=== PATIENT | female | born 1980 | race Caucasian/White ===

== ENCOUNTER 2019-11-09 21:26 | Emergency (ER) | payer MEDICAID ==
[~2019-11-09] VITALS: Ht 170.2 cm; Wt 104.5 kg
[2019-11-09 21:34] VITALS: Ht 170.2 cm; Wt 104.5 kg
[2019-11-09] MEDS ORDERED: LASIX40 MG PO (21:35)
[2019-11-09] MEDS ORDERED: BACLOFEN10 MG PO (21:36)
[2019-11-09] MEDS ORDERED: K-DUR20 MEQ PO (21:36)
[2019-11-09 22:17] LABS: BASOPHILS 0.3 % (0-2); EOSINOPHILS 2.7 % (0-7); HEMATOCRIT 33.4 % (36.0-48.0); IMMATURE GRANULOCYTES 0.8 % (0-5); LYMPHOCYTES 14.5 % (15-50); MCH 29.2 pg (26.0-34.0); MCHC 32.9 g/dL (31.0-37.0); MCV 88.6 fL (80.0-100.0); MEAN PLATELET VOLUME 9.6 fL (7.4-10.4); MONOCYTES 9.8 % (2-11); NEUTROPHILS 71.9 % (40-80); PLATELET COUNT 271 10x3/uL (130-400); RBC 3.77 10x6/uL (4.00-5.40); RDW 13.9 % (11.5-14.5); WBC 10.6 10x3/uL (4.8-10.8)
[2019-11-09 22:40] LABS: ALBUMIN 3.3 g/dL (3.4-5.0); ALKALINE PHOSPHATASE 69 U/L (30-120); ALT (SGPT) 17 U/L (10-68); AMYLASE - SERUM 26 U/L (25-115); BILIRUBIN - TOTAL 0.17 mg/dL (0.2-1.3); CALC OSMOLALITY 280 mosm/kg (275-300); CALCIUM 8.7 mg/dL (8.5-10.1); CARBON DIOXIDE 24.5 mmol/L (21.0-32.0); CHLORIDE - SERUM 105 mmol/L (98-107); CREATININE - SERUM 0.9 mg/dL (0.6-1.3); GLUCOSE 128 mg/dL (74-106); LIPASE 93 U/L (73-393); POTASSIUM - SERUM 3.4 mmol/L (3.5-5.1); PROTEIN - SERUM 6.1 g/dL (6.4-8.2); SODIUM 139 mmol/L (136-145); TROPONIN-I < 0.017 ng/mL (0.000-0.060); UREA NITROGEN 15 mg/dL (7-18); eGFR NON AFRICAN AMERICAN 74 mL/min (90-120)
[2019-11-09 22:43] LABS: BILIRUBIN NEGATIVE (NEGATIVE); GLUCOSE NEGATIVE (NEGATIVE); HCG URINE NEGATIVE (NEGATIVE); KETONE NEGATIVE (NEGATIVE); NITRITE NEGATIVE (NEGATIVE); UROBILINOGEN NORMAL (NORMAL)
[2019-11-09 22:45] LABS: BACTERIA MODERATE /hpf (NEGATIVE); RED CELLS - URINE 0-5 /hpf (0-5); WHITE CELLS - URINE >50 /hpf (NEGATIVE)
[2019-11-09] MEDS ORDERED: KEFLEX500 MG PO (22:57)
[2019-11-09] MEDS ORDERED: MACROBID100 MG PO (22:57)
[2019-11-10] MEDS ORDERED: DIFLUCAN150 MG PO (00:06)
[2019-11-10] MEDS ORDERED: ULTRAM50 MG PO (00:11)
[2019-11-10 02:22] VITALS: BP 120/74
== END 2019-11-10 02:27 | disposition home or self-care (01) ==
LOC: D.ER 21:26
PROVIDERS: Family Medicine
DX: R10.30 Lower abdominal pain, unspecified (principal); N39.0 Urinary tract infection, site not specified; R19.7 Diarrhea, unspecified; M54.9 Dorsalgia, unspecified

== ENCOUNTER 2019-11-12 21:23 | Emergency (ER) | payer MEDICARE, MEDICAID ==
[~2019-11-12] VITALS: Ht 170.2 cm; Wt 104.5 kg
[~2019-11-12 21:23] MED LIST: BACLOFEN10 MG PO; DIFLUCAN150 MG PO; K-DUR20 MEQ PO; KEFLEX500 MG PO; LASIX40 MG PO; MACROBID100 MG PO; ULTRAM50 MG PO
[2019-11-12 21:28] VITALS: Ht 170.2 cm; Wt 104.5 kg
[2019-11-12 22:20] LABS: BASOPHILS 0.4 % (0-2); EOSINOPHILS 4.4 % (0-7); HEMATOCRIT 44.9 % (36.0-48.0); HEMOGLOBIN 14.1 g/dL (12-16); IMMATURE GRANULOCYTES 1.8 % (0-5); LYMPHOCYTES 19.6 % (15-50); MCH 28.7 pg (26.0-34.0); MCHC 31.4 g/dL (31.0-37.0); MCV 91.4 fL (80.0-100.0); MEAN PLATELET VOLUME 10.6 fL (7.4-10.4); MONOCYTES 5.9 % (2-11); NEUTROPHILS 67.9 % (40-80); PLATELET COUNT 220 10x3/uL (130-400); RBC 4.91 10x6/uL (4.00-5.40); RDW 13.6 % (11.5-14.5)
[2019-11-12 22:23] LABS: BILIRUBIN NEGATIVE (NEGATIVE); GLUCOSE NEGATIVE (NEGATIVE); KETONE NEGATIVE (NEGATIVE); NITRITE NEGATIVE (NEGATIVE); UROBILINOGEN NORMAL (NORMAL)
[2019-11-12 22:31] LABS: BACTERIA FEW /hpf (NEGATIVE); RED CELLS - URINE NONE SEEN /hpf (0-5); WHITE CELLS - URINE 0-5 /hpf (NEGATIVE)
[2019-11-12 22:59] LABS: CALC OSMOLALITY 281 mosm/kg (275-300); CALCIUM 8.6 mg/dL (8.5-10.1); CARBON DIOXIDE 25.4 mmol/L (21.0-32.0); CHLORIDE - SERUM 108 mmol/L (98-107); CREATININE - SERUM 0.8 mg/dL (0.6-1.3); GLUCOSE 107 mg/dL (74-106); POTASSIUM - SERUM 3.9 mmol/L (3.5-5.1); SODIUM 142 mmol/L (136-145); UREA NITROGEN 10 mg/dL (7-18); eGFR NON AFRICAN AMERICAN 85 mL/min (90-120)
[2019-11-12] MEDS ORDERED: DOXYCYCLINE HY100 M2 PO (23:04)
[2019-11-12] MEDS ORDERED: HYDROCODON-ACE1 EAC2 PO (23:04)
[2019-11-12] MEDS ORDERED: FLAGYL500 MG PO (23:04)
[2019-11-12 23:05] LABS: ALBUMIN 3.1 g/dL (3.4-5.0); ALKALINE PHOSPHATASE 70 U/L (30-120); ALT (SGPT) 28 U/L (10-68); BILIRUBIN - TOTAL 0.17 mg/dL (0.2-1.3); PROTEIN - SERUM 6.2 g/dL (6.4-8.2)
[2019-11-12 23:17] LABS: HCG SERUM NEGATIVE (NEGATIVE)
[2019-11-12 23:29] VITALS: BP 122/89
== END 2019-11-12 23:29 | disposition home or self-care (01) ==
LOC: D.ER 21:23
PROVIDERS: Emergency Medicine
DX: N73.9 Female pelvic inflammatory disease, unspecified (principal); R10.32 Left lower quadrant pain

== ENCOUNTER 2019-11-28 13:48 | Emergency (ER) | payer MEDICARE, MEDICAID ==
[~2019-11-28] VITALS: Ht 170.2 cm; Wt 104.5 kg
[~2019-11-28 13:48] MED LIST changes: +DOXYCYCLINE HY100 M2 PO; +FLAGYL500 MG PO; +HYDROCODON-ACE1 EAC2 PO
[2019-11-28 13:52] VITALS: Ht 170.2 cm; Wt 104.5 kg
[2019-11-28 15:27] VITALS: BP 159/90
== END 2019-11-28 15:28 | disposition home or self-care (01) ==
LOC: D.ER 13:48
DX: A54.9 Gonococcal infection, unspecified (principal)

== ENCOUNTER 2020-01-05 14:30 | Emergency (ER) | payer MEDICARE, MEDICAID ==
[~2020-01-05] VITALS: Ht 170.2 cm; Wt 105.0 kg
[2020-01-05 14:33] VITALS: Ht 170.2 cm; Wt 105.0 kg
[2020-01-05 15:02] LABS: BASOPHILS 0.5 % (0-2); EOSINOPHILS 2.3 % (0-7); HEMATOCRIT 43.2 % (36.0-48.0); IMMATURE GRANULOCYTES 0.7 % (0-5); LYMPHOCYTES 24.8 % (15-50); MCH 28.7 pg (26.0-34.0); MCHC 32.4 g/dL (31.0-37.0); MCV 88.5 fL (80.0-100.0); MEAN PLATELET VOLUME 10.7 fL (7.4-10.4); MONOCYTES 6.1 % (2-11); NEUTROPHILS 65.6 % (40-80); RBC 4.88 10x6/uL (4.00-5.40); RDW 14.7 % (11.5-14.5); WBC 5.6 10x3/uL (4.8-10.8)
[2020-01-05 15:17] LABS: HCG URINE NEGATIVE (NEGATIVE)
[2020-01-05 15:34] LABS: CALC OSMOLALITY 279 mosm/kg (275-300); CALCIUM 9.4 mg/dL (8.5-10.1); CARBON DIOXIDE 24.5 mmol/L (21.0-32.0); CHLORIDE - SERUM 107 mmol/L (98-107); GLUCOSE 86 mg/dL (74-106); POTASSIUM - SERUM 4.2 mmol/L (3.5-5.1); SODIUM 140 mmol/L (136-145); UREA NITROGEN 17 mg/dL (7-18); eGFR NON AFRICAN AMERICAN 65 mL/min (90-120)
[2020-01-05 15:35] LABS: PLATELET COUNT 115 10x3/uL (130-400)
[2020-01-05 15:42] LABS: ALBUMIN 3.9 g/dL (3.4-5.0); ALKALINE PHOSPHATASE 75 U/L (30-120); ALT (SGPT) 28 U/L (10-68); AMYLASE - SERUM 56 U/L (25-115); BILIRUBIN - TOTAL 0.13 mg/dL (0.2-1.3); LIPASE 184 U/L (73-393); PROTEIN - SERUM 7.4 g/dL (6.4-8.2); TROPONIN-I < 0.017 ng/mL (0.000-0.060)
[2020-01-05 16:27] LABS: BILIRUBIN NEGATIVE (NEGATIVE); KETONE NEGATIVE (NEGATIVE); NITRITE NEGATIVE (NEGATIVE); UROBILINOGEN NORMAL mg/dL (< 2)
[2020-01-05 16:28] LABS: BACTERIA FEW HPF (NONE SEEN); EPITHELIAL CELLS 0-5 /hpf (0-5)
[2020-01-05] MEDS ORDERED: VOLTAREN75 MG PO (19:12)
[2020-01-05] MEDS ORDERED: FLAGYL500 MG PO (19:12)
[2020-01-05] MEDS ORDERED: ZOFRAN ODT4 MG/UDTAB PO (19:12)
[2020-01-05] MEDS ORDERED: DOXYCYCLINE HY100 M2 PO (19:12)
[2020-01-05 19:30] VITALS: BP 124/76
== END 2020-01-05 19:30 | disposition home or self-care (01) ==
LOC: D.ER 14:30
PROVIDERS: Family Medicine
DX: R10.32 Left lower quadrant pain (principal); N73.9 Female pelvic inflammatory disease, unspecified; Z20.2 Contact with and (suspected) exposure to infections with a predominantly sexual mode of transmission; D69.6 Thrombocytopenia, unspecified; N39.0 Urinary tract infection, site not specified; N89.8 Other specified noninflammatory disorders of vagina; R30.0 Dysuria; R19.7 Diarrhea, unspecified

== ENCOUNTER 2020-09-03 12:07 | Emergency (ER) | payer MEDICARE, MEDICAID ==
[~2020-09-03] VITALS: Ht 170.2 cm; Wt 96.4 kg
[~2020-09-03 12:07] MED LIST changes: +VOLTAREN75 MG PO; +ZOFRAN ODT4 MG/UDTAB PO
[2020-09-03 12:10] VITALS: BP 144/96; Ht 170.2 cm; Wt 96.4 kg
[2020-09-03] MEDS ORDERED: AUGMENTIN 875-11 TAB PO (13:55)
[2020-09-03] MEDS ORDERED: TORADOL10 MG PO (13:55)
== END 2020-09-03 14:30 | disposition home or self-care (01) ==
LOC: D.ER 12:07
DX: T22.211A Burn of second degree of right forearm, initial encounter (principal); H66.91 Otitis media, unspecified, right ear; X19.XXXA Contact with other heat and hot substances, initial encounter; Y93.9 Activity, unspecified; Y92.9 Unspecified place or not applicable

== ENCOUNTER 2020-09-19 20:40 | Emergency (ER) | payer MEDICARE, MEDICAID ==
[~2020-09-19] VITALS: Ht 170.2 cm; Wt 97.7 kg
[~2020-09-19 20:40] MED LIST changes: +AUGMENTIN 875-11 TAB PO; +TORADOL10 MG PO
[2020-09-19 20:49] VITALS: BP 142/86; Ht 170.2 cm; Wt 97.7 kg
== END 2020-09-19 23:25 | disposition other institution (70) ==
LOC: D.ER 20:40
DX: S05.32XA Ocular laceration without prolapse or loss of intraocular tissue, left eye, initial encounter (principal); W22.8XXA Striking against or struck by other objects, initial encounter; Y93.9 Activity, unspecified; Y92.9 Unspecified place or not applicable

== ENCOUNTER 2020-09-28 04:32 | Emergency (ER) | payer MEDICARE, MEDICAID ==
[~2020-09-28] VITALS: Ht 170.2 cm; Wt 90.9 kg
[2020-09-28 04:34] VITALS: Ht 170.2 cm; Wt 90.9 kg
[2020-09-28] MEDS ORDERED: OPTIVE SENSITI1 EACH LEFT EYE (08:14)
[2020-09-28] MEDS ORDERED: ERYTHROMYCIN OPT1 GM EACH EYE (08:14)
[2020-09-28] MEDS ORDERED: CYCLOBENZAPRINE10 MG PO (08:19)
[2020-09-28] MEDS ORDERED: IBUPROFEN800 MG PO (08:19)
[2020-09-28] MEDS ORDERED: ACETAMINOPHEN500 M1 PO (08:19)
[2020-09-28 08:27] VITALS: BP 134/92
== END 2020-09-28 08:50 | disposition home or self-care (01) ==
LOC: D.ER 04:32
DX: Z91.19 Patient's noncompliance with other medical treatment and regimen (principal); S05.8X2A Other injuries of left eye and orbit, initial encounter; X58.XXXA Exposure to other specified factors, initial encounter

== ENCOUNTER → 2020-10-04 | Emergency (ER) | payer MEDICARE, MEDICAID ==
[~2020-10-04] VITALS: Ht 170.2 cm; Wt 90.9 kg
[~2020-10-04] MED LIST changes: +ACETAMINOPHEN500 M1 PO; +BACTRIM DS TAB1 EAC1 PO; +CYCLOBENZAPRINE10 MG PO; +ERYTHROMYCIN OPT1 GM EACH EYE; +IBUPROFEN800 MG PO; +OPTIVE SENSITI1 EACH LEFT EYE
[2020-10-04 18:10] VITALS: Ht 170.2 cm; Wt 90.9 kg
[2020-10-04 23:48] LABS: EOSINOPHILS 2.2 % (0-7); HEMATOCRIT 40.7 % (36.0-48.0); HEMOGLOBIN 13.5 g/dL (12-16); LYMPHOCYTES 28.2 % (15-50); MCH 28.3 pg (26.0-34.0); MCHC 33.1 g/dL (31.0-37.0); MCV 85.3 fL (80.0-100.0); NEUTROPHILS 51.6 % (40-80); PLATELET COUNT 250 10x3/uL (130-400); RBC 4.77 10x6/uL (4.00-5.40); RDW 14.4 % (11.5-14.5); WBC 3.9 10x3/uL (4.8-10.8)
[2020-10-04 23:53] LABS: INR 1.03 (0.85-1.17); PROTIME 12.5 SECONDS (11.6-15.0)
[2020-10-04 23:54] LABS: HCG URINE NEGATIVE (NEGATIVE)
[2020-10-04 23:57] LABS: BACTERIA MOD HPF (<MOD); BILIRUBIN NEGATIVE (NEGATIVE); KETONE NEGATIVE mg/dL (< 1+); NITRITE NEGATIVE (NEGATIVE); SQUAMOUS EPITHELIAL 45 HPF (0-4); UROBILINOGEN NORMAL mg/dL (< 2); WHITE CELLS - URINE 89 HPF (0-4)
[2020-10-04 23:58] LABS: CALC OSMOLALITY 279 mosm/kg (275-300); CALCIUM 7.9 mg/dL (8.5-10.1); CARBON DIOXIDE 21.7 mmol/L (21.0-32.0); CHLORIDE - SERUM 108 mmol/L (98-107); CREATININE - SERUM 0.6 mg/dL (0.6-1.3); GLUCOSE 106 mg/dL (74-106); POTASSIUM - SERUM 3.4 mmol/L (3.5-5.1); SODIUM 140 mmol/L (136-145); UREA NITROGEN 16 mg/dL (7-18); eGFR NON AFRICAN AMERICAN > 90 mL/min (90-120)
[2020-10-05 00:01] LABS: ALBUMIN 3.2 g/dL (3.4-5.0); ALKALINE PHOSPHATASE 85 U/L (30-120); ALT (SGPT) 30 U/L (10-68); PROTEIN - SERUM 6.7 g/dL (6.4-8.2)
[2020-10-05 00:02] LABS: UDS - AMPHET POSITIVE QUAL (NEGATIVE); UDS - BARB NEGATIVE QUAL (NEGATIVE); UDS - BENZO POSITIVE QUAL (NEGATIVE); UDS - COCAINE NEGATIVE QUAL (NEGATIVE); UDS - OPIATE NEGATIVE QUAL (NEGATIVE); UDS - PCP NEGATIVE QUAL (NEGATIVE); UDS - THC NEGATIVE QUAL (NEGATIVE)
[2020-10-05 01:30] VITALS: BP 114/77
== END | disposition home or self-care (01) ==
LOC: D.ER 18:01
PROVIDERS: Emergency Medicine
DX: R51.9 Headache, unspecified (principal); F41.9 Anxiety disorder, unspecified; F15.10 Other stimulant abuse, uncomplicated; N39.0 Urinary tract infection, site not specified